=== PATIENT | male | born 1975 | race Two or more races ===

== ENCOUNTER 2017-08-12 19:00 | Emergency (ER) | payer SELFPAY ==
[~2017-08-12] VITALS: Ht 167.6 cm; Wt 77.1 kg
[2017-08-12 19:25] VITALS: BP 150/96
== END 2017-08-12 22:02 | disposition left against medical advice (07) ==
LOC: ER 19:00
DX: H92.02 Otalgia, left ear (principal); Z53.21 Procedure and treatment not carried out due to patient leaving prior to being seen by health care provider

== ENCOUNTER 2021-12-14 01:27 | Emergency (ER) | payer MEDICAID, OTHER ==
[~2021-12-14] VITALS: Ht 167.6 cm; Wt 95.0 kg
[2021-12-14] MEDS ORDERED: LIDOCAINE 1% HCL (LOCAL ANESTH.) INJ 20ML MDV ONE (01:34)
[2021-12-14] MEDS ORDERED: ceFAZolin 1GM/50ML 100 ML IV ONE (01:45)
[2021-12-14] MEDS ORDERED: ACETAMINOPHEN 325 MG TAB PO ONE (01:45)
[2021-12-14] MEDS ORDERED: TETANUS-DIPTH-ACEL PERTUSSIS 0.5ML SYR Tdap IM ONE (01:45)
[2021-12-14] MEDS ORDERED: KETOROLAC TROMETH 30 MG/ML 1ML VIAL IV ONE (01:45)
[2021-12-14] MEDS ORDERED: LIDOCAINE 1% HCL (LOCAL ANESTH.) INJ 20ML MDV IJ ONE (02:00)
[2021-12-14 02:06] LABS: Basophils # (auto) 0.1 10 ^3/uL (0-0.2); Basophils % (auto) 0.7 % (0.0-2.0); Eosinophils # (auto) 0.1 10 ^3/uL (0-0.8); Eosinophils % (auto) 0.6 % (0.0-7.0); Hematocrit 44.8 % (41.0-53.0); Hemoglobin 15.2 g/dL (13.5-17.5); Lymphocytes # (auto) 1.6 10 ^3/uL (0.4-5.4); Lymphocytes % (auto) 14.4 % (10.0-50.0); Mean Corpuscular Hemoglobin 29.7 pg (28.0-32.0); Mean Corpuscular Volume 87.4 fL (80.0-100.0); Monocytes % (auto) 9.1 % (0.0-12.0); Neutrophils # (auto) 8.3 10 ^3/uL (1.6-8.6); Neutrophils % (auto) 75.2 % (37.0-80.0); Nucleated Red Blood Cells % 0.1 %; Red Blood Cells 5.13 10^6/uL (4.5-5.90); Red Cell Distribution Width 14.2 % (11.8-14.3); White Blood Cell 11.1 10^3/uL (4.4-10.8)
[2021-12-14 02:22] LABS: INR 1.03 (0.9-1.15); Partial Thromboplastin Time 26.1 sec (24.6-33.4)
[2021-12-14 02:29] LABS: Alanine Aminotransferase 27 U/L (16-61); Albumin 3.8 g/dL (3.4-5.0); Anion Gap 9 (5-15); Aspartate Aminotransferase 23 U/L (15-37); BUN/Creatinine Ratio 11.3; Blood Urea Nitrogen 13 mg/dL (7-18); Calcium 8.4 mg/dL (8.5-10.1); Carbon Dioxide 24 mmol/L (21-32); Chloride 106 mmol/L (98-107); GFR African American 89 mL/min; GFR Non-African American 73 mL/min; Glucose 133 mg/dL (74-106); Potassium 3.6 mmol/L (3.5-5.1); Sodium 139 mmol/L (136-145)
[2021-12-14 03:04] LABS: Alkaline Phosphatase 52 U/L (45-117); Bilirubin, Total 0.5 mg/dL (0.2-1.0); Total Protein 7.6 g/dL (6.4-8.2)
[2021-12-14 03:13] LABS: Blood Alcohol < 3.0 mg/dL (0-5)
[2021-12-14] MEDS ORDERED: ACET-1803 PO (04:43)
[2021-12-14] MEDS ORDERED: CEPH-510 PO (04:43)
[2021-12-14 05:35] VITALS: BP 126/79
== END 2021-12-14 05:55 | disposition home or self-care (01) ==
LOC: ER 01:27
DX: S41.111A Laceration without foreign body of right upper arm, initial encounter (principal); S41.011A Laceration without foreign body of right shoulder, initial encounter; W26.0XXA Contact with knife, initial encounter; Y93.89 Activity, other specified; Y92.89 Other specified places as the place of occurrence of the external cause; Y99.8 Other external cause status
CPT/HCPCS: 12004; 36415; 70450; 71045; 80053; 80320; 85025; 85610; 85730; 86850; 86900; 86901; 90471; 90715; 96365; 99285; J0690; J2001

== ENCOUNTER 2022-04-01 17:29 | Emergency (ER) | payer MEDICAID ==
[~2022-04-01] VITALS: Ht 167.6 cm; Wt 91.0 kg
[~2022-04-01 17:29] MED LIST: ACET-1803 PO; CEPH-510 PO
[2022-04-01] MEDS ORDERED: LORazepam 2MG/ML-1ML VIAL IM ONE (18:00)
[2022-04-01 19:14] VITALS: BP 114/63
== END 2022-04-01 20:17 | disposition home or self-care (01) ==
LOC: ER 17:29 → EDBD 17:29 → ER 20:17
DX: F15.10 Other stimulant abuse, uncomplicated (principal); Z79.899 Other long term (current) drug therapy
CPT/HCPCS: 96372; 99283; J2060